=== PATIENT | female | born 1985 | race Caucasian/White ===

== ENCOUNTER 2023-10-02 09:15 | Outpatient (CLI) | payer OTHER ==
--- NOTE | 2023-10-02 20:42 | XRAY Report ---
PROCEDURE: Shoulder 2+V LT INDICATIONS: PAIN IN LEFT SHOULDER TECHNIQUE: 3 views of the shoulder were acquired. COMPARISON: None. FINDINGS: Bones: No fractures or dislocations. No suspicious bony lesions. Visualized ribs appear intact. Soft tissues: No suspicious soft tissue calcifications. The visualized lungs are within normal limi ts. IMPRESSION: No acute bony abnormality. No significant osteoarthritic changes. Reviewed by: Hay Granados MD on 10/02/2023 8:41 PM PDT Approved by: Hay Granados MD on 10/02/2023 8:41 PM PDT Station ID: [id number]
== END 2023-10-02 09:30 | disposition home or self-care (01) ==
LOC: DI.N 09:15
PROVIDERS: ATTEND Nurse Practitioner
DX: M25.512 Pain in left shoulder (principal)

== ENCOUNTER 2023-10-30 20:52 | Outpatient (CLI) | payer OTHER ==
--- NOTE | 2023-10-31 19:53 | Ultrasound Report ---
PROCEDURE: Pelvic w/Transvaginal INDICATIONS: PELVIC PAIN TECHNIQUE: Transabdominal/transvaginal ultrasound of the pelvis was obtained. Endovaginal scanning wa s necessary due to incomplete visualization of the adnexal and endometrial structures by transabdomin al scanning. COMPARISON: None. FINDINGS: Uterine size: Uterus measures 8.2 x 3.5 x 3.1 cm, and is anteverted. Myometrium: The myometrium is homogeneous. Endometrium: The endometrium measures 6.8 mm in combined thickness. Right ovary: The right ovary measures 2.8 x 1.6 x 2.7 cm. Calculated ovarian volume 6.3 cc. Left ovary: The left ovary measures 2.8 x 1.6 x 3.0 cm. Calculated ovarian volume 7.2 cc. Other: No pathologic free abdominal or pelvic fluid. IMPRESSION: Unremarkable ultrasound of the pelvis Reviewed by: Dickson Pena MD on 10/31/2023 6:52 PM [email or web address] Approved by: Dickson Pena MD on 10/31/2023 6:52 PM AKDT Station ID: [id number]
== END 2023-10-30 20:53 | disposition home or self-care (01) ==
LOC: DI 20:52
PROVIDERS: ATTEND Nurse Practitioner Family
DX: R10.2 Pelvic and perineal pain (principal)

== ENCOUNTER 2024-01-03 16:26 | Outpatient (CLI) | payer OTHER ==
--- NOTE | 2024-01-04 15:46 | MRI Report ---
PROCEDURE: Shoulder LT WO INDICATIONS: L SHOULDER PAIN TECHNIQUE: Noncontrast oblique coronal T2 fast spin echo with fat saturation, oblique sagittal T1 spin echo and T2 fast spin echo with fat saturation, axial T1 spin echo and T2 fast spin echo with fat saturation t hrough the shoulder. COMPARISON: 10/02/2023 FINDINGS: Image quality: Diagnostic Rotator cuff Bulk: No significant atrophy Teres minor: Intact Supraspinatus: Partial-thickness interstitial tear near the insertion. Moderate superimposed tendinop athy Infraspinatus: Mild tendinopathy. Subscapularis: Mild to moderate tendinopathy. Bones and bursae GH joint: No high-grade degenerative changes. No significant effusion AC joint: Mild degenerative changes Humeral head: No acute fracture Scapula and acromion: No acute fracture Bursa: Mild edema Capsule Labrum: Possible small superior labral tear Long head biceps tendon: Mild tendinopathy and tear at the distal intra-articular aspect. IGHL: Intact Rotator interval: Fat signal is preserved Soft tissues: No axillary adenopathy. Lungs are not well seen. IMPRESSION: No acute fracture or dislocation. Partial-thickness interstitial supraspinatus tear. Moderate superimposed tendinopathy. No full-thickn ess defect elsewhere. Mild acromioclavicular degenerative changes. Possible small superior labral tear. This could be better evaluated on MR arthrogram if needed. Mild tendinopathy and tear of the long head biceps tendon. Reviewed by: Bronson Green MD on 01/04/2024 3:45 PM PDT Approved by: Bronson Green MD on 01/04/2024 3:45 PM PDT Station ID: [id number]
== END 2024-01-03 16:27 | disposition home or self-care (01) ==
LOC: DI 16:26
PROVIDERS: ATTEND Nurse Practitioner Family
DX: M75.112 Incomplete rotator cuff tear or rupture of left shoulder, not specified as traumatic (principal); M19.012 Primary osteoarthritis, left shoulder; S46.112A Strain of muscle, fascia and tendon of long head of biceps, left arm, initial encounter